=== PATIENT | female | born 1995 | race Caucasian/White ===

== ENCOUNTER 2020-08-22 19:07 | Emergency (ER) | payer OTHER, MEDICAID, SELFPAY ==
[2020-08-22 19:11] VITALS: BP 129/66; PULSE 114; RESP 22; TEMP 37.2; O2SAT 100
[2020-08-22 21:13] VITALS: BP 114/74; PULSE 89; O2SAT 96
[2020-08-22] MEDS: PENICILLIN G BENZATHINE 1,200,000 UNIT/2 ML SYRINGE 1200000 UNIT IM (22:48)
--- NOTE | 2020-08-23 04:41 | ED.URI ---
HPI - URI/Sore Throat General Chief Complaint: Upper Respiratory Symptoms Stated Complaint: sent from [facility] for strep Time Seen by Provider: 08/22/20 19:13 Source: patient and other Mode of arrival: Ambulatory Limitations: no limitations History of Present Illness HPI Narrative: 25F nonsmoker with noncontributory medical history presents from the walk-in clinic for further evaluation and stabilization. Patient he has had sore throat and tender nodes with subjective fever and difficulty swallowing for the past few days. She denies any cough nor nausea or vomiting. She presented to the walk-in clinic and had a swab which was reported as positive when they called over. She was sent here for IV fluids and further management. She is nontoxic and not septic in able to tolerate oral hydration and food. She is feeling a bit weak and fatigued MD Complaint: fever and sore throat Onset (ago): day(s) Duration: constant Severity: moderate Exacerbating factors: swallowing Able to tolerate fluids by mouth: Yes Treatments prior to arrival: none Review of Systems Constitutional Constitutional: Denies chills, Denies fatigue, Denies fever(s), Denies frequent falls, Denies lethargy and Denies weakness Eyes Eyes: Denies change in vision, Denies eye discharge, Denies irritation and Denies loss of vision ENT Ears, Nose, Mouth, and Throat: Denies change in voice, Denies dizziness, Denies neck pain, Reports sore throat and Denies throat swelling Cardiovascular Cardiovascular: Denies chest pain, Denies irregular heart rhythm, Denies lightheadedness, Denies palpitations, Denies dyspnea, Denies dyspnea on exertion and Denies orthopnea Respiratory Respiratory: Denies cough, Denies dyspnea, Denies dyspnea on exertion and Denies wheezing Gastrointestinal Gastrointestinal: Denies abdominal pain, Denies change in bowel habits, Denies diarrhea, Denies nausea and Denies vomiting Musculoskeletal Musculoskeletal: Denies neck pain and Denies numbness Integumentary/Breasts Skin/Breast: Denies pruritus, Denies erythema, Denies rash and Denies wounds Neurologic Neurologic: Denies behavioral changes, Denies confusion, Denies dizziness, Denies frequent falls, Denies loss of vision, Denies numbness and Denies weakness Psychiatric Psychiatric: Denies anxiety, Denies behavioral changes, Denies confusion, Denies depression, Denies homicidal ideation and Denies suicidal ideation Endocrine Endocrine: Denies fatigue, Denies flushing and Denies palpitations Hematologic/Lymphatic Hematologic/Lymphatic: Denies easy bruising Allergic/Immunologic Allergic/Immunologic: Denies urticaria, Denies throat swelling and Denies wheezing Patient History Social History Smoking Status: Never smoker Smoking Status: Never smoker Exam Narrative Exam Narrative: GENERAL: [25] year old patient appears stated age. Well-nourished, well-developed patient, in mild distress. Appears unwell but nontoxic HEAD: Atraumatic. Normocephalic. EYES: Pupils equal round and reactive. Extraocular motions intact. No scleral icterus. No injection or drainage. ENT: Moist mucous membranes, pharyngeal erythema with tonsillar swelling and exudate, patent airway. Tender anterior nodes. No uvular pointing or pharyngeal edema to suggest peritonsillar abscess T. NECK: Trachea midline. Non tender CARDIOVASCULAR: Regular rate and rhythm without murmurs, gallops, or rubs. RESPIRATORY: Clear to auscultation. Breath sounds equal bilaterally. No wheezes, rales, or rhonchi. GASTROINTESTINAL: Abdomen soft, non-tender, nondistended. EXTREMITIES: No edema or joint tenderness. BACK: Nontender without deformity or crepitance. No flank tenderness. NEURO: AOx3. SKIN: No rash or erythema of visible areas Initial Vital Signs Initial Vital Signs: Vital Signs Temperature 98.9 F 08/22/20 19:11 Pulse Rate 114 H 08/22/20 19:11 Respiratory Rate 22 08/22/20 19:11 Blood Pressure 129/66 08/22/20 19:11 Pulse Oximetry 100 08/22/20 19:11 Course Orders Ordered: Discontinued Medications Penicillin G Benzathine (Penicillin G Benzathine 1,200,000 Unit/2 Ml Syringe) 1,200,000 unit IM NOW ONE Stop: 08/22/20 22:42 Last Admin: 08/22/20 22:48 Dose: 1,200,000 unit Documented by: GRACE Vital Signs Vital signs: Vital Signs - 8 hr 08/22/20 21:13 Pulse Rate 89 Blood Pressure 114/74 Pulse Oximetry 96 MDM - URI/Sore Throat MDM Narrative Medical decision making narrative: Provider from walking called over reporting a positive strep, however there is no lab confirmation but they are taken at their word. Furthermore patient's story and exam are very classic for strep. Patient feels tremendous relief after the above-stated therapies. She is tolerating orals, managing her secretions, having no difficulty with breathing, no longer is dizzy or lightheaded and has improved vital signs, no longer tachycardic. She has been given return precautions and had questions answered to her apparent satisfaction Discharge Plan Departure Patient Disposition: Home Clinical Impression: Strep pharyngitis Instructions: DI for Strep Throat Activity Restrictions/Additional Instructions: 1. Drink plenty of fluids with frequent small sips. 2. For the next 24 hours a clear liquid diet is advised. After that please employ a B.R.A.T. diet which would include bananas, rice, apples, toast and other mild food items 3. Please take medications as directed. 4. Please follow-up with your doctor in the next 1-2 days. Call the office for an appointment. 5. Please return to the emergency Department for any worsening or persistent symptoms, such as increasing pain or fever. Referrals: [facility] [Outside]
== END 2020-08-22 23:02 | disposition home or self-care (01) ==
PROVIDERS: Emergency Provider Emergency Medicine
DX: J02.0 Streptococcal pharyngitis (principal)
CPT/HCPCS: 96372; 99283; J0561